=== PATIENT | female | born 1995 | race Caucasian/White ===

== ENCOUNTER 2016-07-24 19:53 | Emergency (ER) | payer BC ==
[2016-07-24 19:59] VITALS: TEMP 99.5
[2016-07-24] MEDS ORDERED: ONDANSETRON 4 MG/2 ML VIAL ONE (20:13)
--- NOTE | 2016-07-24 20:25 | EDPHY ---
H & P Time Seen by Provider: 07/24/16 20:20 HPI/ROS: CHIEF COMPLAINT: Vomiting HISTORY OF PRESENT ILLNESS: This patient is a 20 year old female who presents to the Emergency Department complaining of nausea and vomiting beginning at 1030 today. She denies abdominal pain, diarrhea, or additional complaints. She was sick over Winter Break with gastroenteritis. She does not know anyone else who is sick. Denies any pertinent medical history. REVIEW OF SYSTEMS: Constitutional: No fever, no chills Eyes: No visual changes ENT: No sore throat Respiratory: No cough, no shortness of breath Cardiac: No chest pain Gastrointestinal: +nausea, +vomiting, no abdominal pain Genitourinary: No hematuria, no dysuria Musculoskeletal: No leg pain or swelling Skin: No rash Neurological: No headache, no numbness, no weakness Psychiatric: No depression Past Medical/Surgical History: Denies. Social History: Daily marijuana use, alcohol use on weekends. Smoking Status: Never smoked Physical Exam: General Appearance: Alert, pale, tremulous Eyes: Pupils equal and round, no conjunctival pallor or injection ENT, Mouth: Mucous membranes moist Neck: Normal inspection Respiratory: Lungs are clear to auscultation Cardiovascular: Regular rate and rhythm Gastrointestinal: Abdomen is soft and non- tender Neurological: A&O, nonfocal, normal gait Skin: Warm and dry, no rash Extremities: Nontender, no pedal edema Psychiatric: Mood and affect normal Constitutional: Initial Vital Signs Temperature (C) 37.5 C 07/24/16 19:56 Heart Rate 103 H 07/24/16 19:56 Respiratory Rate 18 07/24/16 19:56 Blood Pressure 105/50 L 07/24/16 19:56 O2 Sat (%) 97 07/24/16 19:56 O2 Delivery Mode Room Air Allergies/Adverse Reactions: amoxicillin Allergy (Verified 07/24/16 19:55) Home Medications: Medication Instructions Recorded Cymbalta 07/24/16 Ondansetron Odt [Zofran Odt 4 mg 4 mg PO Q4 PRN #6 tab 07/24/16 (*)] Medical Decision Making ED Course/Re-evaluation: IV established. 1L IV NS and 4mg IV Zofran administered. 5: On reevaluation, the patient is feeling better but continues to complain of nausea. Will administer 10mg IV Reglan and additional 1L IV NS. 2224: On reevaluation, the patient is feeling much better and is eager to go home. She will be discharged home with Zofran for nausea and instructions to follow-up with a primary care provider. The patient is agreeable to this and understands return to the ED precautions. Differential Diagnosis: Differential diagnosis includes though it is not limited to appendicitis, cholecystitis, diverticulitis, pyelonephritis, bowel perforation, small bowel obstruction. - Data Points Medications Given: Discontinued Medications Sodium Chloride (Ns) 1,000 mls @ 0 mls/hr IV EDNOW ONE PRN Reason: Wide Open Stop: 07/24/16 20:27 Last Admin: 07/24/16 20:27 Dose: 1,000 mls Sodium Chloride (Ns) 1,000 mls @ 0 mls/hr IV ONCE ONE PRN Reason: Wide Open Stop: 07/24/16 21:36 Last Admin: 07/24/16 21:37 Dose: 1,000 mls Metoclopramide HCl (Reglan Injection) 10 mg IVP EDNOW ONE Stop: 07/24/16 21:35 Last Admin: 07/24/16 21:50 Dose: 10 mg Ondansetron HCl (Zofran) 4 mg IVP EDNOW ONE Stop: 07/24/16 20:27 Last Admin: 07/24/16 20:27 Dose: 4 mg Ondansetron HCl (Zofran Odt 4 Mg Prepack#2) 1 btl TAKEHOME EDNOW ONE Stop: 07/24/16 22:24 Last Admin: 07/24/16 22:31 Dose: 1 btl Promethazine HCl (Phenergan Injection) 12.5 mg IVP EDNOW ONE Stop: 07/24/16 20:29 Last Admin: 07/24/16 20:47 Dose: 12.5 mg Departure - Departure Disposition: Home, Routine, Self-Care Clinical Impression: Nausea & vomiting Qualifiers: Vomiting type: unspecified Vomiting Intractability: non-intractable Qualifier Code: (R11.2) Nausea with vomiting, unspecified Condition: Good Instructions: Ondansetron (By mouth), Acute Nausea and Vomiting (ED) Additional Instructions: 1. Take Zofran as directed, as needed for nausea and vomiting. 2. Increase fluid intake as tolerated. 3. Consider decreasing your marijuana use as we discussed, as this could contribute to your episodes of nausea and vomiting. 4. Follow-up with a primary care provider for reevaluation. If you do not have a local PCP, we have referred you to Dr. Gimenez, our on-call physician. 5. Return to the Emergency Department with uncontrollable vomiting, severe abdominal pain, diarrhea, blood in vomit or stool, or other serious concerns. Referrals: Neville Gimenez MD [Medical Doctor] - As per Instructions Prescriptions: Ondansetron Odt [Zofran Odt 4 mg (*)] 4 mg PO Q4 PRN #6 tab PRN Reason: Nausea Report Scribed for: Shelli Owens Report Scribed by: Jeni Barlow Date of Report: 07/24/16 Time of Report: 20:25 Physician Review and Approval Statement: 07/24/16 20:25 Portions of this note were transcribed by a medical record specialist. I personally performed a history, physical exam, medical decision making, and confirmed accuracy of information the transcribed note.
[2016-07-24] MEDS ORDERED: NS 1,000 ML IV ONE ×2 (20:26→21:35)
[2016-07-24] MEDS ORDERED: ONDANSETRON 4 MG/2 ML VIAL IVP ONE (20:26)
[2016-07-24] MEDS ORDERED: PROMETHAZINE HCL 25 MG/ML INJ IVP ONE (20:28)
[2016-07-24] MEDS ORDERED: METOCLOPRAMIDE 10 MG/2 ML VIAL IVP ONE (21:34)
[2016-07-24] MEDS ORDERED: ONDANSETRON 4MG PREPACK#2 BTL TAKEHOME ONE (22:23)
[2016-07-24 22:48] VITALS: BP 94/47; PULSE 95; RESP 16; O2SAT 94
== END 2016-07-24 22:46 | disposition home or self-care (01) ==
DX: R11.2 Nausea with vomiting, unspecified (principal)
CPT/HCPCS: 96374; J2405; J2550; J2765

== ENCOUNTER 2016-07-25 14:29 | Emergency (ER) | payer BC ==
[2016-07-25 14:36] VITALS: TEMP 99; O2SAT 96
[2016-07-25] MEDS ORDERED: FAMOTIDINE 20 MG/NACL 50 ML IV ONE (15:15)
[2016-07-25] MEDS ORDERED: PROMETHAZINE HCL 25 MG/ML INJ IVP ONE (15:15)
[2016-07-25] MEDS ORDERED: ONDANSETRON 4 MG/2 ML VIAL IVP ONE (15:15)
[2016-07-25] MEDS ORDERED: NS 1,000 ML IV ONE ×2 (15:15)
[2016-07-25] MEDS ORDERED: HALOPERIDOL LACT 5 MG/ML INJ IVP ONE (15:16)
--- NOTE | 2016-07-25 15:42 | EDPHY ---
H & P Time Seen by Provider: 07/25/16 15:01 HPI/ROS: HPI Vomiting. 20-year-old female by private vehicle with her friend. This patient was seen in our emergency department yesterday with complaint of nausea and vomiting. No diarrhea. No abdominal pain. She is a daily marijuana user. She was medicated and hydrated yesterday in the emergency department and discharged. She returns to the emergency department today with the same complaint of nausea and vomiting. Again no abdominal pain and no diarrhea. She denies a prior history of cyclic vomiting. She states however that this has been happening to her more frequently. No foreign travel. No change in diet. No ill contacts. ROS: Constitutional: No fever, no chills. No weakness. Eyes: No discharge. No changes in vision. ENT: No sore throat. No nasal congestion or rhinorrhea. Respiratory: No cough. No shortness of breath. Cardiac: No chest pain, no palpitations. Gastrointestinal: No abdominal pain, as above, no diarrhea. Genitourinary: No hematuria. No dysuria or increased frequency with urination. Musculoskeletal: No back pain. No neck pain. No myalgias or arthralgias. Skin: No rashes. Neurological: No headache. No focal weakness or altered sensation. Past medical history: None. Social history: Student at [employer]. As above. Here with her friend. Physical Exam: General Appearance: Alert, dry heaving. Appears uncomfortable. This patient is responding to questions appropriately and in full sentences. This patient appears well-hydrated and well-nourished. Eyes: Pupils equal and round no pallor or injection. No lid edema, erythema or injection. Respiratory: There are no retractions, lungs are clear to auscultation with good air movement bilaterally. Cardiovascular: Regular rate and rhythm. No murmur. Gastrointestinal: Abdomen is soft and nontender, no masses, bowel sounds normal. No focal tenderness at McBurney's point. No Baer sign. Neurological: Motor sensory function is grossly intact. Cranial nerves are normal. Gait is normal. Skin: Warm and dry, no rashes. Musculoskeletal: Neck is supple and nontender. Extremities are symmetrical. All joints range without pain or impingement. Psychiatric: No agitation. No depression. Database: EKG: Imaging: Procedures: Emergency department course: IV placed. She was placed on a monitor. She was started on IV normal saline with 1-2 L to be given over the next 1-2 hours. She was initially given 4 mg of IV Zofran, 6.25 mg of IV Phenergan, 20 mg of IV Pepcid and 2.5 mg of IV Haldol. 4:30 p.m., patient re-evaluated. She is resting comfortably at this time. No further nausea or vomiting. Repeat abdominal exam she is soft, nontender nondistended. Laboratory work discussed with her. 5:30 p.m., patient is sleeping comfortably. Repeat abdominal exam she is soft, nontender nondistended. She has been taking oral fluids without vomiting. She feels comfortable going home and I feel she is safe for discharge. Follow-up and return to emergency department precautions have been discussed with her. All of her questions were answered. She was discharged from the emergency department in good condition with her friend who is driving. Differential Diagnosis: The differential diagnosis on this patient includes but is not limited to food borne illness, cyclic vomiting syndrome, cannabis associated vomiting. Bowel obstruction/volvulus, appendicitis, cholecystitis, pancreatitis, other surgical etiology unlikely. This represents a partial list of diagnoses considered. These considerations are based on history, physical exam, past history, reassessment and diagnostic testing. Smoking Status: Never smoked Constitutional: Initial Vital Signs Temperature (C) 37.2 C 07/25/16 14:33 Heart Rate 96 07/25/16 14:33 Respiratory Rate 18 07/25/16 14:33 Blood Pressure 125/81 H 07/25/16 14:33 O2 Sat (%) 96 07/25/16 14:33 O2 Delivery Mode Room Air Allergies/Adverse Reactions: amoxicillin Allergy (Verified 07/24/16 19:55) Home Medications: Medication Instructions Recorded Cymbalta 07/24/16 Ondansetron Odt [Zofran Odt 4 mg 4 mg PO Q4 PRN #6 tab 07/24/16 (*)] Promethazine HCl [Phenergan 25mg 25 mg PO Q4-6PRN PRN #12 tab 07/25/16 (*)] Medical Decision Making - Data Points Laboratory Results: Laboratory Results 07/25/16 15:40 07/25/16 15:15 01/25/17 01/25/17 01/25/17 15:40 15:17 15:15 WBC 9.24 10^3/uL (3.80-9.50) RBC 4.54 10^6/uL (4.18-5.33) Hgb 14.0 g/dL (12.6-16.3) Hct 40.9 % (38.0-47.0) MCV 90.1 fL (81.5-99.8) MCH 30.8 pg (27.9-34.1) MCHC 34.2 g/dL (32.4-36.7) RDW 13.5 % (11.5-15.2) Plt Count 279 10^3/uL (150-400) MPV 9.3 fL (8.7-11.7) Neut % (Auto) 89.6 H % (39.3-74.2) Lymph % (Auto) 8.7 L % (15.0-45.0) [place] % (Auto) 1.3 L % (4.5-13.0) Eos % (Auto) 0.0 L % (0.6-7.6) Baso % (Auto) 0.2 L % (0.3-1.7) Nucleat RBC Rel Count 0.0 % (0.0-0.2) Absolute Neuts (auto) 8.28 H 10^3/uL (1.70-6.50) Absolute Lymphs (auto) 0.80 L 10^3/uL (1.00-3.00) Absolute Monos (auto) 0.12 L 10^3/uL (0.30-0.80) Absolute Eos (auto) 0.00 L 10^3/uL (0.03-0.40) Absolute Basos (auto) 0.02 10^3/uL (0.02-0.10) Absolute Nucleated RBC 0.00 10^3/uL (0-0.01) Immature Gran % 0.2 % (0.0-1.1) Immature Gran # 0.02 10^3/uL (0.00-0.10) Sodium 140 mEq/L (134-144) Potassium 3.8 mEq/L (3.5-5.2) Chloride 105 mEq/L (97-110) Carbon Dioxide 18 L mEq/l (22-31) Anion Gap 17 mEq/L (8-16) BUN 15 mg/dL (7-23) Creatinine 0.9 mg/dL (0.6-1.0) Estimated GFR > 60 Glucose 121 H mg/dL (70-100) Calcium 9.7 mg/dL (8.5-10.4) Total Bilirubin 0.5 mg/dL (0.1-1.4) Conjugated Bilirubin 0.1 mg/dL (0.0-0.5) Unconjugated Bilirubin 0.4 mg/dL (0.0-1.1) AST 51 H IU/L (14-46) ALT 66 H IU/L (9-52) Alkaline Phosphatase 62 IU/L (38-126) Total Protein 7.7 g/dL (6.3-8.2) Albumin 4.6 g/dL (3.5-5.0) Lipase 63.0 IU/L (23-300) Beta HCG, Qual NEGATIVE Salicylates < 1.0 L mg/dL (2.0-20.0) Acetaminophen < 10 L mcg/mL (10.0-30.0) Medications Given: Discontinued Medications Haloperidol Lactate (Haldol Injection) 2.5 mg IVP EDNOW ONE Stop: 07/25/16 15:17 Last Admin: 07/25/16 15:56 Dose: 2.5 mg Sodium Chloride (Ns) 1,000 mls @ 0 mls/hr IV ONCE ONE PRN Reason: Wide Open Stop: 07/25/16 15:16 Last Admin: 07/25/16 15:56 Dose: 1,000 mls Sodium Chloride (Ns) 1,000 mls @ 0 mls/hr IV ONCE ONE PRN Reason: Wide Open Stop: 07/25/16 15:16 Last Admin: 07/25/16 17:06 Dose: 1,000 mls Famotidine/Sodium Chloride (Pepcid 20 Mg (Premix)) 50 mls @ 200 mls/hr IV EDNOW ONE Stop: 07/25/16 15:29 Last Admin: 07/25/16 15:55 Dose: 50 mls Ondansetron HCl (Zofran) 4 mg IVP EDNOW ONE Stop: 07/25/16 15:16 Last Admin: 07/25/16 15:56 Dose: 4 mg Promethazine HCl (Phenergan Injection) 6.25 mg IVP EDNOW ONE Stop: 07/25/16 15:16 Last Admin: 07/25/16 15:56 Dose: 6.25 mg Departure - Departure Disposition: Home, Routine, Self-Care Clinical Impression: Vomiting Condition: Good Instructions: Acute Nausea and Vomiting (ED) Additional Instructions: Read and follow provided instructions. Follow-up with your primary care physician at the [facility] in 1-2 days for re-evaluation. You should have your liver function tests repeated and your electrolytes repeated next week by your primary care physician. These are blood tests. Do not smoke marijuana. Take medication as prescribed only. Return to the emergency department for return of vomiting and inability to keep fluids down despite medications, abdominal pain, fever or other serious concerns. Referrals: NONE *PRIMARY CARE P,. [Primary Care Provider] - As per Instructions Prescriptions: Promethazine HCl [Phenergan 25mg (*)] 25 mg PO Q4-6PRN PRN #12 tab PRN Reason: For Nausea & Vomiting
[2016-07-25 15:57] LABS: % IMMATURE GRANULYOCYTES 0.2 % (0.0-1.1); ABSOLUTE IMMATURE GRANULOCYTES 0.02 10^3/uL (0.00-0.10); ADD DIFF? NO; ADD MORPH? NO; ADD SCAN? NO; ATYPICAL LYMPHOCYTE FLAG 0 (0-99); FRAGMENT RBC FLAG 0 (0-99); HEMATOCRIT 40.9 % (38.0-47.0); LEFT SHIFT FLG 0 (0-99); LIPEMIA HEMOLYSIS FLAG 90 (0-99); MEAN CELL HEMOGLOBIN 30.8 pg (27.9-34.1); MEAN CELL HEMOGLOBIN CONCENTR. 34.2 g/dL (32.4-36.7); MEAN CELL VOLUME 90.1 fL (81.5-99.8); MEAN PLATELET VOLUME 9.3 fL (8.7-11.7); PLATELET CLUMPS FLAG 0 (0-99); PLATELET COUNT 279 10^3/uL (150-400); RED BLOOD CELL COUNT 4.54 10^6/uL (4.18-5.33); RED CELL DISTRIBUTION WIDTH 13.5 % (11.5-15.2)
[2016-07-25 16:21] LABS: ALANINE AMINOTRANSFERASE 66 IU/L (9-52); ALBUMIN 4.6 g/dL (3.5-5.0); ALKALINE PHOSPHATASE 62 IU/L (38-126); ANION GAP 17 mEq/L (8-16); ASPARTATE AMINOTRANSFERASE 51 IU/L (14-46); BILIRUBIN,TOTAL 0.5 mg/dL (0.1-1.4); BILIRUBIN-CONJUGATED 0.1 mg/dL (0.0-0.5); BILIRUBIN-UNCONJUGATED 0.4 mg/dL (0.0-1.1); CALCIUM 9.7 mg/dL (8.5-10.4); CARBON DIOXIDE 18 mEq/l (22-31); CHLORIDE 105 mEq/L (97-110); CREATININE 0.9 mg/dL (0.6-1.0); GLOMERULAR FILTRATION RATE > 60; GLUCOSE 121 mg/dL (70-100); POTASSIUM 3.8 mEq/L (3.5-5.2); SODIUM 140 mEq/L (134-144); TOTAL PROTEIN 7.7 g/dL (6.3-8.2)
[2016-07-25 17:22] LABS: SALICYLATE < 1.0 mg/dL (2.0-20.0)
[2016-07-25 18:07] VITALS: BP 117/68; PULSE 75; RESP 17
== END 2016-07-25 18:07 | disposition home or self-care (01) ==
DX: R11.10 Vomiting, unspecified (principal)
CPT/HCPCS: 96374; G0480; J2405; J2550

== ENCOUNTER 2016-10-19 21:48 | Emergency (ER) | payer BC ==
[2016-10-19 22:07] LABS: % IMMATURE GRANULYOCYTES 0.3 % (0.0-1.1); ABSOLUTE IMMATURE GRANULOCYTES 0.03 10^3/uL (0.00-0.10); ADD DIFF? NO; ADD MORPH? NO; ADD SCAN? NO; ATYPICAL LYMPHOCYTE FLAG 30 (0-99); FRAGMENT RBC FLAG 0 (0-99); HEMATOCRIT 41.8 % (38.0-47.0); LEFT SHIFT FLG 0 (0-99); LIPEMIA HEMOLYSIS FLAG 80 (0-99); MEAN CELL HEMOGLOBIN 30.3 pg (27.9-34.1); MEAN CELL HEMOGLOBIN CONCENTR. 33.5 g/dL (32.4-36.7); MEAN CELL VOLUME 90.5 fL (81.5-99.8); MEAN PLATELET VOLUME 9.6 fL (8.7-11.7); PLATELET CLUMPS FLAG 0 (0-99); PLATELET COUNT 360 10^3/uL (150-400); RED BLOOD CELL COUNT 4.62 10^6/uL (4.18-5.33); RED CELL DISTRIBUTION WIDTH 13.1 % (11.5-15.2)
[2016-10-19 22:21] LABS: ANION GAP 12 mEq/L (8-16); CALCIUM 9.1 mg/dL (8.5-10.4); CARBON DIOXIDE 23 mEq/l (22-31); CHLORIDE 103 mEq/L (97-110); CREATININE 0.8 mg/dL (0.6-1.0); GLOMERULAR FILTRATION RATE > 60; GLUCOSE 122 mg/dL (70-100); POTASSIUM 3.5 mEq/L (3.5-5.2); SODIUM 138 mEq/L (134-144)
[2016-10-19 22:34] LABS: ETHANOL SERUM 307 mg/dL (0-10)
[2016-10-19 22:51] VITALS: TEMP 97.7
--- NOTE | 2016-10-20 00:28 | EDPHY ---
H & P Stated Complaint: BIBA; decreased LOC after EtOH ingestion - Personal History LMP (Females 10-55): Unknown Current Tetanus/Diphtheria Vaccine: Unsure Tetanus Vaccine Date: within 10 years - Medical/Surgical History Hx Asthma: No Hx Chronic Respiratory Disease: No Hx Diabetes: No Hx Cardiac Disease: No Hx Renal Disease: No Hx Cirrhosis: No Hx Alcoholism: No Hx HIV/AIDS: No Hx Splenectomy or Spleen Trauma: No Other PMH: PMHx: anxiety/depression, Gastroenteritis - Social History Smoking Status: Never smoked HPI/ROS: Chief complaint: Alcohol intoxication History of present illness: 21-year-old female brought to the emergency department by EMS for evaluation of possible alcohol intoxication. Patient showed up to [facility] this evening, coworkers noted that she had been drinking, she reported vodka and orange juice. She apparently became more intoxicated during her stay there and passed out. EMS was summoned. On my evaluation patient will not answer questions. Review of systems: A 10 point review of systems was obtained and other than described above was negative (Doug Dunn) - Physical Exam Exam: General Appearance: Alert to verbal stimuli Eyes: PERRLA. EOM intact. ENT: No hemotympanum, no quiroz sign, no raccoon eyes Respiratory: Lungs clear to auscultation bilaterally Cardiac: Regular rate and rhythm. Gastrointestinal: Bowel sounds normal. Abdomen is soft, nondistended, nontender. Neurological: Alert to verbal stimuli. Moving all extremities well. Skin: No lesions consistent with acute trauma. Musculoskeletal: Head is normocephalic, atraumatic. Spine is without apparent tenderness. No crepitus, bony deformity or step-off appreciated. Chest wall intact palpation. No crepitus or subcutaneous air appreciated. Patient moving all extremities well. (Doug Dunn) Constitutional: Initial Vital Signs Temperature (C) 36.5 C 10/19/16 21:58 Heart Rate 76 10/19/16 21:58 Respiratory Rate 16 10/19/16 21:58 Blood Pressure 123/85 H 10/19/16 21:58 O2 Sat (%) 95 10/19/16 21:58 O2 Delivery Mode Room Air Allergies/Adverse Reactions: amoxicillin Allergy (Verified 07/24/16 19:55) Home Medications: Medication Instructions Recorded Cymbalta 07/24/16 Ondansetron Odt [Zofran Odt 4 mg 4 mg PO Q4 PRN #6 tab 07/24/16 (*)] Promethazine HCl [Phenergan 25mg 25 mg PO Q4-6PRN PRN #12 tab 07/25/16 (*)] Medical Decision Making ED Course/Re-evaluation: Patient seen under the supervision of my secondary supervising physician Dr. Fletcher Wright. Patient presents to the emergency department apparently intoxicated. On my evaluation she does appear intoxicated. She is nontoxic. Vital signs are stable. Physical exam is benign. She does have an elevated alcohol level. She will be allowed to sober up until she can be discharged to the [facility]. (Doug Dunn) Other Provider: 2:15 a.m. the patient is ambulating without assistance . She is tearful. She is calling for a ride. She declines further workup or testing at this time. ( Fletcher Wright) - Data Points Laboratory Results: Laboratory Results 10/19/16 21:48 10/19/16 21:48 10/19/16 10/19/16 10/19/16 21:48 21:48 21:48 WBC 10.53 10^3/uL H 10^3/uL (3.80-9.50) RBC 4.62 10^6/uL 10^6/uL (4.18-5.33) Hgb 14.0 g/dL g/dL (12.6-16.3) Hct 41.8 % % (38.0-47.0) MCV 90.5 fL fL (81.5-99.8) MCH 30.3 pg pg (27.9-34.1) MCHC 33.5 g/dL g/dL (32.4-36.7) RDW 13.1 % % (11.5-15.2) Plt Count 360 10^3/uL 10^3/uL (150-400) MPV 9.6 fL fL (8.7-11.7) Neut % (Auto) 36.6 % L % (39.3-74.2) Lymph % (Auto) 53.1 % H % (15.0-45.0) [place] % (Auto) 7.8 % % (4.5-13.0) Eos % (Auto) 1.6 % % (0.6-7.6) Baso % (Auto) 0.6 % % (0.3-1.7) Nucleat RBC Rel Count 0.0 % % (0.0-0.2) Absolute Neuts (auto) 3.86 10^3/uL 10^3/uL (1.70-6.50) Absolute Lymphs (auto) 5.59 10^3/uL H 10^3/uL (1.00-3.00) Absolute Monos (auto) 0.82 10^3/uL H 10^3/uL (0.30-0.80) Absolute Eos (auto) 0.17 10^3/uL 10^3/uL (0.03-0.40) Absolute Basos (auto) 0.06 10^3/uL 10^3/uL (0.02-0.10) Absolute Nucleated RBC 0.00 10^3/uL 10^3/uL (0-0.01) Immature Gran % 0.3 % % (0.0-1.1) Immature Gran # 0.03 10^3/uL 10^3/uL (0.00-0.10) Sodium 138 mEq/L mEq/L (134-144) Potassium 3.5 mEq/L mEq/L (3.5-5.2) Chloride 103 mEq/L mEq/L (97-110) Carbon Dioxide 23 mEq/l mEq/l (22-31) Anion Gap 12 mEq/L mEq/L (8-16) BUN 11 mg/dL mg/dL (7-23) Creatinine 0.8 mg/dL mg/dL (0.6-1.0) Estimated GFR > 60 Glucose 122 mg/dL H mg/dL (70-100) Calcium 9.1 mg/dL mg/dL (8.5-10.4) Beta HCG, Qual NEGATIVE Ethyl Alcohol 307 mg/dL H mg/dL (0-10) Departure - Departure Disposition: Home, Routine, Self-Care Clinical Impression: Alcoholic intoxication Qualifiers: Complication of substance-induced condition: uncomplicated Qualified Code(s): F10.120 - Alcohol abuse with intoxication, uncomplicated Condition: Good Instructions: Alcohol Intoxication (ED) Additional Instructions: Follow-up with a primary care doctor for recheck If symptoms worsen or new symptoms develop return to the emergency room Avoid drinking alcohol to excess Referrals: Patient,NotPresent [Primary Care Provider] - As per Instructions [facility],. [Clinic] - As per Instructions
[2016-10-20 02:53] VITALS: BP 113/79; PULSE 106; RESP 17; O2SAT 100
== END 2016-10-20 02:56 | disposition home or self-care (01) ==
LOC: EDUNIT#
DX: F10.120 Alcohol abuse with intoxication, uncomplicated (principal)
CPT/HCPCS: G0480